=== PATIENT | male | born 1980 | race Caucasian/White ===

== ENCOUNTER 2020-12-09 04:47 | Inpatient (IN) | payer OTHER ==
[~2020-12-09] VITALS: Ht 180.3 cm; Wt 68.0 kg
[~2020-12-09 04:47] MED LIST: LORTAB PO; PERCOCET 7.5-31 EACH PO
[2020-12-09 05:39] LABS: HEMOGLOBIN 11.7 gm/dl (14.0-17.5); RED BLOOD COUNT 4.18 M/UL (4.20-5.50); WHITE BLOOD COUNT 11.7 K/UL (4.5-11.0)
[2020-12-09 05:55] LABS: BUN/CREATININE RATIO 25 (0-10)
[2020-12-09 12:37] LABS: HEMOGLOBIN 11.1 gm/dl (14.0-17.5); RED BLOOD COUNT 3.99 M/UL (4.20-5.50)
[2020-12-09 12:39] LABS: WHITE BLOOD COUNT 18.1 K/UL (4.5-11.0)
[2020-12-14] MEDS ORDERED: HYDROCODON-ACE1 EAC4 PO (11:18)
[2020-12-14] MEDS ORDERED: CYCLOBENZAPRINE10 MG PO (11:18)
== END 2020-12-14 16:33 | disposition home or self-care (01) | DRG 420 ==
LOC: ER1 04:47 → CDU 07:07 → MED SURG 4 10:41
PROVIDERS: Family Medicine; ADMIT Surgery
PROC: 0DJ04ZZ Inspection of Upper Intestinal Tract, Percutaneous Endoscopic Approach (ICD-10-PCS; 2020-12-09)
PROC: 0DJ00ZZ Inspection of Upper Intestinal Tract, Open Approach (ICD-10-PCS; principal; 2020-12-09 07:37)
DX: S36.113A Laceration of liver, unspecified degree, initial encounter (principal); K66.1 Hemoperitoneum; K56.7 Ileus, unspecified; S31.110A Laceration without foreign body of abdominal wall, right upper quadrant without penetration into peritoneal cavity, initial encounter; Z20.822 Contact with and (suspected) exposure to COVID-19; W01.0XXA Fall on same level from slipping, tripping and stumbling without subsequent striking against object, initial encounter; Y93.01 Activity, walking, marching and hiking; Y92.89 Other specified places as the place of occurrence of the external cause; Y99.8 Other external cause status; Z82.49 Family history of ischemic heart disease and other diseases of the circulatory system; Z83.3 Family history of diabetes mellitus
CPT/HCPCS: 74018; 80053; 83690; 85025; 85027; 86850; 86900; 86901; 90714; 97161; 99285; J0690; J1650; J2001; J2250; J2270; J2405; J2550; J2704; J2710; J3010; J3480; J7030; J7120; Q9967; U0002